=== PATIENT | female | born 1970 | race American Indian/Alaskan Native ===

== ENCOUNTER 2019-07-27 13:08 | Outpatient (CLI) | payer BC ==
--- NOTE | 2019-07-30 15:49 | Mammography Report ---
DIGITAL SCREENING MAMMOGRAM WITH CAD, 07/27/2019 INDICATION: Routine screening mammography. TECHNIQUE: Digital bilateral 2D mammography was obtained in the craniocaudal and mediolateral obliq ue projections. This examination was interpreted with the benefit of Computer-Aided Detection analysi s. COMPARISON: 12/17/2014 FINDINGS: Breast Density: The breasts are heterogeneously dense, which may obscure small masses. Right asymmetries require additional imaging. No architectural distortion or suspicious calcification s of the right breast. There is no evidence of dominant mass, suspicious calcifications or architectu ral distortion in the left breast. IMPRESSION: Right asymmetries requiring additional imaging. Recommend recall for right spot compressi on views and right breast ultrasound if needed. Follow up recommendation: Routine yearly Category 0: Incomplete. Needs additional imaging evaluation and/or prior mammograms for comparison. A "normal" or negative report should not discourage follow up or biopsy of a clinically significant f inding. A written summary of these findings will be mailed to the patient. The patient will be entered into a mammography reporting system which will generate a reminder letter for the patient's next appointmen t at the appropriate interval. The [employer] recommends yearly mammograms starting at age 40 and continuing as l muna as a woman is in good health. Breast MRI is recommended for women with an approximate 20-25% or greater lifetime risk of breast cancer, including women with a strong family history of breast or ova lashonda cancer or who have been treated for Hodgkin's disease. Signer Name: Bonifacio Huratdo MD Signed: 07/30/2019 3:44 PM Workstation Name: [id number]
== END 2019-07-27 13:09 | disposition home or self-care (01) ==
LOC: SPVWC 13:08
PROVIDERS: ATTEND Family Medicine
DX: Z12.31 Encounter for screening mammogram for malignant neoplasm of breast (principal)
CPT/HCPCS: 77067